=== PATIENT | male | born 1955 | race Caucasian/White ===

== ENCOUNTER 2019-06-21 12:58 | Outpatient (CLI) | payer OTHER | END 2019-06-21 23:59 | disposition home or self-care (01) | LOC: CARD 12:58 | PROVIDERS: ATTEND Nurse Practitioner Acute Care | DX: I63.89 Other cerebral infarction (principal); I65.23 Occlusion and stenosis of bilateral carotid arteries; R56.9 Unspecified convulsions; R91.1 Solitary pulmonary nodule | CPT/HCPCS: 95819 ==